=== PATIENT | female | born 1995 | race Caucasian/White ===

== ENCOUNTER 2018-06-17 06:28 | Day surgery (SDC) | payer OTHER ==
[~2018-06-17] VITALS: Ht 160 cm; Wt 72.0 kg
[~2018-06-17 06:28] MED LIST: CRYSELLE1 EACH PO; FLONASE16 G1 BOTH NARES; MULTIVITAMIN1 EAC2 PO; PROAIR HFA8.5 GM IH; SINGULAIR10 MG PO; VALTREX1000 MG PO; ZYRTEC10 M3 PO
[2018-06-17 07:02] VITALS: BP 133/80
[2018-06-17 10:42] VITALS: BP 124/66
[2018-06-17 11:42] VITALS: BP 110/61
[2018-06-17 13:24] VITALS: BP 124/77
== END 2018-06-17 13:30 | disposition home or self-care (01) ==
LOC: SDC 06:28 → 2SOUTH 08:38 → EDSTATUS 08:40 → SDC 08:42
DX: N80.3 Endometriosis of pelvic peritoneum (principal); N94.6 Dysmenorrhea, unspecified; N94.10 Unspecified dyspareunia; J45.909 Unspecified asthma, uncomplicated; Z88.0 Allergy status to penicillin
CPT/HCPCS: 88305; J0690; J1170; J1644; J1885; J2250; J2405; J2765; J3010; J7120